=== PATIENT | female | born 1955 | race Two or more races ===

== ENCOUNTER → 2018-06-26 | Outpatient (CLI) | payer OTHER | LOC: BMCIMAGING 08:47 | PROVIDERS: ATTEND Physician Assistant | DX: S82.155D Nondisplaced fracture of left tibial tuberosity, subsequent encounter for closed fracture with routine healing (principal) ==

== ENCOUNTER → 2018-07-04 | Outpatient (CLI) | payer OTHER | LOC: BMCIMAGING 07:12 | PROVIDERS: ATTEND Physician Assistant | DX: Z12.31 Encounter for screening mammogram for malignant neoplasm of breast (principal) ==